=== PATIENT | female | born 1970 | race Caucasian/White ===

== ENCOUNTER → 2020-11-12 12:47 | Outpatient (BNVA) | payer OTHER, SELFPAY | PROVIDERS: Family Provider Nurse Practitioner; Visit Provider Internal Medicine | DX: Z01.812 Encounter for preprocedural laboratory examination (principal) | CPT/HCPCS: 87635 ==

== ENCOUNTER 2020-11-18 07:56 | Day surgery (SDC) | payer OTHER, SELFPAY ==
[2020-11-14 10:26] VITALS: BMI 31.8
[2020-11-18 08:15] VITALS: BP 131/87; PULSE 85; RESP 18; TEMP 36.7; O2SAT 98
[2020-11-18] MEDS: sodium chloride 0.9% 1,000 ML 30 ML IV (08:30)
--- NOTE | 2020-11-18 08:56 | W.PM.OPSFHP ---
Same Day Surgery H&P Indication for Procedure/HPI DATE OF PROCEDURE: November 18, 2020 CHIEF COMPLAINT/INDICATIONFOR SURGICAL PROCEDURE: Abdominal pain PREOP DIAGNOSIS: Abdominal pain and postprandial bloating PLANNED PROCEDRUE: Operation Date: 11/18/20 09:00 Proposed Procedures p EGD 88886 R13.10(Not Applicable) - Zack Pérez MD Medications/Allergies* Home Medications Medication Instructions Recorded Confirmed Type alprazolam 2 mg tablet 2 mg PO .at bedtime tab 09/04/20 11/14/20 History pantoprazole 40 mg tablet,delayed 40 mg PO DAILY 09/04/20 11/14/20 History release chlorthalidone 25 mg tablet 25 mg PO DAILY 09/18/20 11/14/20 History thyroid (pork) 30 mg tablet 30 mg PO DAILY 09/18/20 11/14/20 History vilazodone [Viibryd] 10 mg PO DAILY 11/18/20 11/18/20 History Allergies/Adverse Reactions Allergy/AdvReac Type Severity Reaction Status Date / Time Sulfa (Sulfonamide Allergy Intermediate sick Verified 11/18/20 08:15 Antibiotics) Current Medications: Generic Name Dose Route Start Last Admin Trade Name Freq PRN Reason Stop Dose Admin Sodium Chloride 1,000 mls @ 30 mls/hr 11/18/20 08:15 11/18/20 08:30 Sodium Chloride 0.9% IV 11/19/20 08:14 30 mls/hr .Q24H NIDA Administration Pertinent History/Comorbid Conditions* Surgical History (Updated 09/04/20 @ 16:05 by Zack Pérez MD) H/O: hysterectomy History of cholecystectomy Family History (Updated 09/04/20 @ 15:48 by NA Hill) Diabetes Grandmother Mother Heart disease Mother Cancer Grandfather Social History Smoking and tobacco status: current every day smoker Alcohol intake: current Alcohol intake frequency: few times a week Alcohol type: hard liquor Marital status: Number of children: 3 service: No History of recent travel: No Pertinent Exam Findings alert, oriented x 3, clear to auscultation bilaterally, regular rate & rhythm, operative site marked and procedure specific exam findings Recommendations Surgery/Procedure today Coding Level of Care Code Acute Anesthesia Attending for Fan Adrian
[2020-11-18 09:17] VITALS: BP 127/85; PULSE 78; RESP 16; TEMP 36.2; O2SAT 96
--- NOTE | 2020-11-18 09:24 | ANES.PREANE2 ---
Pre-Anesthetic Assessment Pre-Anesthetic Assessment: Height/Weight: Height 1.57 m Weight 78.925 kg Temp Pulse Resp BP Pulse Ox 97.2 F L 78 16 127/85 96 11/18/20 09:17 11/18/20 09:17 11/18/20 09:17 11/18/20 09:17 11/18/20 09:17 Preop Diagnosis: Abdominal pain and postprandial bloating Proposed Procedure: Operation Date: 11/18/20 09:00 Proposed Procedures p EGD 13224 R13.10(Not Applicable) - Zack Pérez MD Was Beta Olga taken within 24 hours: N/A Last intake: Intake Last Liquid Date 11/17/20 Last Solid Date 11/17/20 Social: Social History: Tobacco and No alcohol Exam: Pre-Anes Outpt Exam: alert, oriented x 3, clear to auscultation bilaterally and regular rate & rhythm Airway: Submandibular: WNL Cervical ROM: WNL MP: 2 Dentition: Full Pulmonary: Pulmonary: COPD GI: GI: GERD Metabolic: Metabolic: Thyroid Neuropsych: Neuropsych: Anxiety and Depression Anesthetic Plan: ASA status: 3 Anesthesia: MAC Risk of > 500 ml blood loss (7ml/kg in children): No Meds/Allergies Current Medications: Current Medications Generic Name Dose Route Start Last Admin Trade Name Freq PRN Reason Stop Dose Admin Sodium Chloride 1,000 mls @ 30 ml s/hr 11/18/20 08:15 11/18/20 08:30 Sodium Chloride 0.9% IV 11/19/20 08:14 30 mls/hr .Q24H NIDA Administration PFSH Anesthesia PFSH: Surgical History H/O: hysterectomy History of cholecystectomy Family History Grandfather Cancer Grandmother Diabetes Mother Diabetes Heart disease Social History Smoking and tobacco status: current every day smoker Alcohol intake: current Alcohol intake frequency: few times a week Alcohol type: hard liquor Marital status: Number of children: 3 service: No History of recent travel: No Data Anesthesia Cardiac Studies: No Data to Display
--- NOTE | 2020-11-18 09:27 | ANE.PACU2 ---
Inpatient post-anesthesia follow up: Airway intact: Yes Vital signs: Temperature 97.2 F Pulse Rate 78 Respiratory Rate 16 Blood Pressure 127/85 Pulse Oximetry 96 Oxygen Delivery Me thod Room Air Oxygen Flow Rate Fraction of Inspir ed Oxygen Hydration adequate: Yes Nausea and vomiting: No Pain level: 1 Mental status: Baseline
[2020-11-18 09:33] VITALS: BP 138/93; PULSE 75; RESP 18; O2SAT 100
--- NOTE | 2020-11-18 11:58 | ANE.PACU2 ---
Inpatient post-anesthesia follow up: Airway intact: Yes Vital signs: Temperature 97.2 F Pulse Rate 75 Respiratory Rate 18 Blood Pressure 138/93 Pulse Oximetry 100 Oxygen Delivery Me thod Room Air Oxygen Flow Rate Fraction of Inspir ed Oxygen Hydration adequate: Yes Nausea and vomiting: No Pain level: 1 Mental status: Baseline
[2020-11-19 05:54] LABS: H. Pylori / CLO Test Negative
== END 2020-11-18 09:49 | disposition home or self-care (01) ==
PROVIDERS: PCP Nurse Practitioner Family; Visit Provider Internal Medicine
PROC: 0DJ08ZZ Inspection of Upper Intestinal Tract, Via Natural or Artificial Opening Endoscopic (ICD-10-PCS; CPT 43235; principal; 2020-11-18 09:00)
DX: R13.10 Dysphagia, unspecified (principal); R14.0 Abdominal distension (gaseous); K44.9 Diaphragmatic hernia without obstruction or gangrene; K29.70 Gastritis, unspecified, without bleeding; J44.9 Chronic obstructive pulmonary disease, unspecified; F17.210 Nicotine dependence, cigarettes, uncomplicated
CPT/HCPCS: 43239; 87077; J2704; J7030

== ENCOUNTER → 2022-01-22 09:47 | Outpatient (BNVA) | payer OTHER, SELFPAY | PROVIDERS: PCP Nurse Practitioner Family; Visit Provider Internal Medicine | DX: R63.5 Abnormal weight gain (principal); F32.A Depression, unspecified | CPT/HCPCS: 80053; 84443; 85025 ==